=== PATIENT | female | born 1995 | race Caucasian/White ===

== ENCOUNTER 2016-09-01 14:03 | Inpatient (IN) | payer OTHER ==
[2016-09-01] MEDS ORDERED: HYDROMORPHONE HCL INJ/PF 2 MG/ML AMPULE IV ONE ×3 (14:14→15:53)
[2016-09-01] MEDS ORDERED: ONDANSETRON HCL INJ/PF 4 MG/2 ML SDV IV ONE (14:14)
[2016-09-01] MEDS ORDERED: DIPH/PERTUSS(ACELL)/TETANUS VAC/PF 0.5 ML SYR (>=10YO) IM ONE (14:14)
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
[2016-09-01] MEDS ORDERED: MORPHINE SULFATE 10 MG/ML INJ ONE (18:07)
[2016-09-01] MEDS ORDERED: MORPHINE SULFATE 10 MG/ML INJ IV PRN (19:14)
[2016-09-01] MEDS ORDERED: ONDANSETRON 4 MG TAB.RAPDIS PO PRN (19:16)
[2016-09-01] MEDS ORDERED: HYDROMORPHONE HCL INJ/PF 2 MG/ML AMPULE IV PRN (20:54)
[2016-09-02] MEDS: RINGERS SOLUTION,LACTATED 1,000 ML IV PRN ×3 (01:16→11:40)
[2016-09-02] MEDS: HYDROMORPHONE HCL INJ/PF 2 MG/ML AMPULE IV PRN ×7 (02:55→23:09)
[2016-09-02] MEDS ORDERED: DEXTROSE 50%-WATER 25 GM/50 ML DISP.SYRIN IV PRN ×2 (04:23)
[2016-09-02] MEDS ORDERED: GLUCAGON,HUMAN RECOMB 1 MG INJ SUBCUT PRN (04:23)
[2016-09-02] MEDS ORDERED: DEXTROSE 40% GEL 15 GM TUBE PO PRN ×2 (04:23)
[2016-09-02] MEDS ORDERED: CEFAZOLIN 2 GM/D5W RTU 2 GM/50 ML RTUPB IV ONE (07:00)
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
[2016-09-02] MEDS ORDERED: LIDOCAINE 2% INJ-PF (20 MG/ML) 10 ML AMPUL ONE (08:02)
[2016-09-02] MEDS ORDERED: SUCCINYLCHOLINE CHLORIDE INJ 200 MG/10 ML VIAL ONE (08:02)
[2016-09-02 08:29] LABS: ABSOLUTE MONOCYTES (AUTO) 0.9 10^3/uL (0.1-1.4); BASOPHILS % (AUTO) 0.4 % (0-2); EOSINOPHILS % (AUTO) 0.2 % (0-6); HEMOGLOBIN 11.6 g/dL (12.0-15.5); HGB HCT DIFFERENCE 0.8; LYMPHOCYTES % (AUTO) 14.2 % (13-45); MEAN CORPUSCULAR HEMOGLOBIN 29.6 pg (27.0-33.4); MEAN CORPUSCULAR HGB CONC 34.1 g/dL (32.0-36.0); MEAN CORPUSCULAR VOLUME 87 fl (80-97); MONOCYTES % (AUTO) 13.1 % (3-13); RED BLOOD COUNT 3.92 10^6/uL (3.72-5.28); RED CELL DISTRIBUTION WIDTH 12.8 % (11.5-14.0); SEGMENTED NEUTROPHILS % (AUTO) 72.1 % (42-78); WHITE BLOOD COUNT 6.9 10^3/uL (4.0-10.5)
[2016-09-02 08:45] LABS: ANION GAP 8 (5-19); BLOOD UREA NITROGEN 7 mg/dL (7-20); CALCIUM 8.9 mg/dL (8.4-10.2); CARBON DIOXIDE 27 mmol/L (22-30); CHLORIDE 101 mmol/L (98-107); CREATININE RESULT 0.57 mg/dL (0.52-1.25); GLUCOSE 98 mg/dL (75-110); POTASSIUM 3.8 mmol/L (3.6-5.0); SODIUM 135.7 mmol/L (137-145)
[2016-09-02] MEDS ORDERED: FENTANYL CITRATE INJ/PF 100 MCG/2 ML AMPUL ONE ×2 (13:12→13:42)
[2016-09-02] MEDS ORDERED: MIDAZOLAM 2 MG/2 ML INJ ONE (13:12)
[2016-09-02] MEDS ORDERED: PROPOFOL INJ 200 MG/20 ML VIAL IV ONE (13:13)
[2016-09-02] MEDS ORDERED: DEXMEDETOMIDINE INJ 80 MCG/20 ML VIAL IV ONE (13:13)
[2016-09-02] MEDS ORDERED: ACETAMINOPHEN 100 ML IV ONE ×2 (13:26→13:43)
[2016-09-02] MEDS ORDERED: HYDROMORPHONE HCL INJ/PF 2 MG/ML AMPULE ONE ×2 (13:42→15:31)
[2016-09-02] MEDS ORDERED: MORPHINE SULFATE 10 MG/ML INJ IV PRN (14:01)
[2016-09-02] MEDS ORDERED: FENTANYL CITRATE INJ/PF 100 MCG/2 ML AMPUL IV PRN ×3 (14:01)
[2016-09-02] MEDS ORDERED: OXYCODONE-ACETAMINOPHEN 5-325 MG TABLET PO PRN ×2 (14:01)
[2016-09-02] MEDS ORDERED: DIPHENHYDRAMINE HCL 50 MG/ML VIAL IV PRN ×2 (14:01→18:40)
[2016-09-02] MEDS ORDERED: MEPERIDINE HCL/PF INJ 25 MG/1 ML DISP.SYRIN IV PRN (14:01)
--- NOTE | 2016-09-02 14:20 | Operative Report ---
Operative Report DATE OF SURGERY: 09/02/16 PREOPERATIVE DIAGNOSIS: Right distal third tib-fib fracture OPERATION: Reduction internal fixation right tibia fracture SURGEON: CHRISTOS TREVINO ANESTHESIA: GA ESTIMATED BLOOD LOSS: 25 PROCEDURE: With the patient supine on the operating table the right lower extremities prepped and draped in a sterile fashion. The limb was elevated for exsanguination tourniquet inflated 280 torr. A longitudinal incision was made along the distal aspect of the patella and the patellar tendon. Sharp dissection was used to carry the incision through the retinaculum. A pin is then placed by hand into the proximal tibial metadiaphysis. Combined reamer was used to fashion a cortical opening. This instrumentation was removed. A ball-tipped guide michael was placed down the tibia across the fracture into the distal tibia. Tibial length measures 360 mm. Subsequently the canal was reamed using flexible reamers until a 10.5 mm reamer is passed. A [employer] titanium tibial nail 360 mm x 9 mm was then advanced over the ball- tipped guide michael across the fracture site. Single proximal interlock is placed. 3 distal interlocks were placed. The tourniquet was deflated. Hemostasis obtained with electrocautery. The wound is irrigated. Is closed in layers with interrupted Vicryl followed by tarun. A sterile compressive dressing was applied and the patient's return to the PACU in satisfactory condition.
[2016-09-02] MEDS ORDERED: ACETAMINOPHEN 325 MG TABLET PO PRN (14:49)
[2016-09-02] MEDS ORDERED: IBUPROFEN INJ 800 MG/8 ML VIAL IV ONE (14:53)
[2016-09-02] MEDS: HYDROMORPHONE HCL INJ/PF 2 MG/ML AMPULE ONE ×3 (14:55→15:15)
--- NOTE | 2016-09-02 15:03 | RADIOLOGY REPORT (SQ) ---
EXAM DESCRIPTION: NO CHG FLUORO; TIBIA FIBULA RIGHT COMPLETED DATE/TIME: 09/02/2016 2:53 pm REASON FOR STUDY: ORIF RT TIB FIB ASSISTED WITH FLUORO IN OR COMPARISON: 09/01/2016. FLUOROSCOPY TIME: 1.2 minutes. 11 images saved to PACS. TECHNIQUE: Intra-operative images acquired during surgical procedure to evaluate progress. NUMBER OF IMAGES: 11 images. LIMITATIONS: None. FINDINGS: Surgical fixation with placement hardware in the tibia. IMPRESSION: IMAGE(S) OBTAINED DURING PROCEDURE. COMMENT: Quality ID [id number]: Final reports for procedures using fluoroscopy that document radiation exp osure indices, or exposure time and number of fluorographic images (if radiation exposure indices are not available) Please consult full operative report of the attending physician for description of the procedure. TECHNICAL DOCUMENTATION: JOB ID: [id number] [employer]- All Rights Reserved
--- NOTE | 2016-09-02 15:04 | RADIOLOGY REPORT (SQ) ---
EXAM DESCRIPTION: NO CHG FLUORO; TIBIA FIBULA RIGHT COMPLETED DATE/TIME: 09/02/2016 2:53 pm REASON FOR STUDY: ORIF RT TIB FIB ASSISTED WITH FLUORO IN OR COMPARISON: 09/01/2016. FLUOROSCOPY TIME: 1.2 minutes. 11 images saved to PACS. TECHNIQUE: Intra-operative images acquired during surgical procedure to evaluate progress. NUMBER OF IMAGES: 11 images. LIMITATIONS: None. FINDINGS: Surgical fixation with placement hardware in the tibia. IMPRESSION: IMAGE(S) OBTAINED DURING PROCEDURE. COMMENT: Quality ID [id number]: Final reports for procedures using fluoroscopy that document radiation exp osure indices, or exposure time and number of fluorographic images (if radiation exposure indices are not available) Please consult full operative report of the attending physician for description of the procedure. TECHNICAL DOCUMENTATION: JOB ID: [id number] [employer]- All Rights Reserved
[2016-09-02] MEDS ORDERED: SCOPOLAMINE HYDROBROMIDE 1.5 MG PATCH.TD72 ONE (15:22)
[2016-09-02] MEDS ORDERED: ONDANSETRON HCL INJ/PF 4 MG/2 ML SDV ONE (15:22)
[2016-09-02] MEDS ORDERED: IBUPROFEN 800 MG in NORMAL SALINE 250 ML IV SCH (18:00)
[2016-09-02] MEDS: CEFAZOLIN 2 GM/D5W RTU 2 GM/50 ML RTUPB IV SCH (18:38)
[2016-09-02] MEDS: OXYCODONE HCL IR 5 MG TABLET PO PRN (19:36)
[2016-09-02] MEDS: IBUPROFEN 800 MG in NORMAL SALINE 250 ML IV SCH (21:22)
[2016-09-03] MEDS: CEFAZOLIN 2 GM/D5W RTU 2 GM/50 ML RTUPB IV SCH (01:28)
[2016-09-03] MEDS: RINGERS SOLUTION,LACTATED 1,000 ML IV PRN ×2 (01:28→09:47)
[2016-09-03] MEDS: OXYCODONE HCL IR 5 MG TABLET PO PRN ×4 (02:54→20:53)
[2016-09-03] MEDS: HYDROMORPHONE HCL INJ/PF 2 MG/ML AMPULE IV PRN (04:48)
[2016-09-03] MEDS: IBUPROFEN 800 MG in NORMAL SALINE 250 ML IV SCH ×2 (05:51→14:43)
[2016-09-03] MEDS: ONDANSETRON HCL INJ/PF 4 MG/2 ML SDV IV PRN ×2 (09:38→18:58)
[2016-09-04] MEDS: OXYCODONE HCL IR 5 MG TABLET PO PRN ×2 (03:01→09:06)
[2016-09-04] MEDS: ONDANSETRON HCL INJ/PF 4 MG/2 ML SDV IV PRN (05:47)
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
[2016-09-04 09:07] VITALS: BP 123/64
== END 2016-09-04 10:45 | disposition home or self-care (01) | DRG 494 ==
LOC: ER 14:03 → EH 15:37 → 2N 16:42
PROVIDERS: ADMIT Orthopaedic Surgery; ATTEND Orthopaedic Surgery
PROC: 3E0234Z Introduction of Serum, Toxoid and Vaccine into Muscle, Percutaneous Approach (ICD-10-PCS; 2016-09-01)
PROC: 0QSG04Z Reposition Right Tibia with Internal Fixation Device, Open Approach (ICD-10-PCS; principal; 2016-09-02 13:30)
DX: S82.251A Displaced comminuted fracture of shaft of right tibia, initial encounter for closed fracture (principal); S82.831A Other fracture of upper and lower end of right fibula, initial encounter for closed fracture; V86.59XA Driver of other special all-terrain or other off-road motor vehicle injured in nontraffic accident, initial encounter; Z23 Encounter for immunization
CPT/HCPCS: 01392; 36415; 80048; 81025; 85025; 90471; 90715; 96374; 96375; 99285; C1713; J0131; J0330; J0690; J1170; J1200; J1741; J2250; J2270; J2405; J2704; J3010; J3490; J7050; J7120; S0119